=== PATIENT | male | born 1995 | race Caucasian/White ===

== ENCOUNTER 2020-06-07 20:50 | Emergency (ER) | payer BC ==
[~2020-06-07] VITALS: Ht 182.9 cm; Wt 86.1 kg
[2020-06-07 21:00] VITALS: BP 153/94
--- NOTE | 2020-06-07 21:00 | PHYS DOC ---
General Adult HPI: HPI: ".. I was working.... at [employer].. and axil luiz fell.. and I caught it.. my shoulder been hurting .. " Patient is a 25 year old male who presents with above hx and complaints of left shoulder. Patient has obvious swelling of distal left clavicle. Does have deltoid sensation. Distal neurovascular intact. No other injury reported. 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 Patient is right-hand dominant. Review of Systems: Review of Systems: Constitutional: Denies fever or chills Eyes: Denies change in visual acuity HENT: Denies nasal congestion or sore throat Respiratory: Denies cough or shortness of breath Cardiovascular: Denies chest pain or edema GI: Denies abdominal pain, nausea, vomiting, bloody stools or diarrhea : Denies dysuria Musculoskeletal: Complains of left shoulder pain Integument: Denies rash Neurologic: Denies headache, focal weakness or sensory changes Endocrine: Denies polyuria or polydipsia Lymphatic: Denies swollen glands Psychiatric: Denies depression or anxiety Heart Score: Risk Factors: Risk Factors: DM, Current or recent (<one month) smoker, HTN, HLP, family history of CAD, obesity. Risk Scores: Score 0 - 3: 2.5% MACE over next 6 weeks - Discharge Home Score 4 - 6: 20.3% MACE over next 6 weeks - Admit for Clinical Observation Score 7 - 10: 72.7% MACE over next 6 weeks - Early Invasive Strategies Family History: Family History: Noncontributory Current Medications: Current Meds: See nursing for home meds Allergies: Allergies: No known drug allergies Physical Exam: PE: Constitutional: Well developed, well nourished, moderate acute distress, non- toxic appearance. [] HENT: Normocephalic, atraumatic, bilateral external ears normal, oropharynx moist, no oral exudates, nose normal. [] Eyes: PERRLA, EOMI, conjunctiva normal, no discharge. [] Neck: Normal range of motion, no tenderness, supple, no stridor. [] Cardiovascular:Heart rate regular rhythm, no murmur [] Lungs & Thorax: Bilateral breath sounds equal at apex auscultation [] Abdomen: Bowel sounds normal, soft, no tenderness, no masses, no pulsatile masses. [] Skin: Warm, dry, no erythema, no rash. Tattoos Back: No tenderness, no CVA tenderness. [] Extremities: No tenderness, no cyanosis, no clubbing, ROM intact, no edema. Except findings in left shoulder and clavicle area as per HPI Neurologic: Alert and oriented X 3, normal motor function, normal sensory function, no focal deficits noted. [] Psychologic: Affect anxious, judgement normal, mood normal. [] EKG: EKG: [] Radiology/Procedures: Radiology/Procedures: [][address] [address] IMAGING REPORT Signed PATIENT: JUSTA QUIROZ RACCOUNT: [id number] : 1995 LOCATION: ER AGE: 25 SEX: M EXAM STATUS: REG ER ORD. PHYSICIAN: SHANTANU BOUDREAUX MD REASON: POSSIBLE DISLOCATION, LT SHOULDER PAIN, INJURED PLAYING FOOTBALL PROCEDURE: CHEST AP ONLY CHEST AP ONLY Clinical Indication: Reason: POSSIBLE DISLOCATION, LT SHOULDER PAIN, INJURED PLAYING FOOTBALL / Comparison: None. Findings: The cardiomediastinal silhouette is normal. Lungs are clear. There is no pneumothorax. No pleural effusion is appreciated. There is acute fracture of the distal left clavicle. This is better evaluated on dedicated shoulder radiographs. No acute left rib abnormality. IMPRESSION: No acute cardiopulmonary process. Electronically signed by: Primo Ricardo MD (06/07/2020 9:36 PM) [facility] DICTATED AND SIGNED BY: PRIMO RICARDO MD DATE: 06/07/202135 CC: SHANTANU BOUDREAUX MD; PCP,NO ~ Course & Med Decision Making: Course & Med Decision Making Pertinent Labs and Imaging studies reviewed. (See chart for details) Patient resting intact after application of sling. . Patient take Tylenol and ibuprofen for pain. Use ice packs. Follow-up with workman comp. Follow-up with Ortho. For marked pain may take Vicoprofen up to 4 times a day. Return if any concerns. Follow-up workman comp. Impression: 1. Acute Fx of distal clavicle left with AC separation [] Dragon Disclaimer: Nabeel Disclaimer: This electronic medical record was generated, in whole or in part, using a voice recognition dictation system. Departure Departure: Disposition: 01 HOME/RESIDENCE PRIOR TO ADM Condition: STABLE Referrals: PCP,NO (PCP) Scripts Hydrocodone/Ibuprofen (HYDROCODONE-IBUPROFEN 7.5-200 ) 1 Each Tablet 1 TAB PO PRN Q6HRS PRN for PAIN, #30 TAB 0 Refills Prov: SHANTANU BOUDREAUX MD 06/07/20 Justification of Admission: Justification of Admission: Justification of Admission Dx: Yes Dragon Disclaimer This chart was dictated in whole or in part using Voice Recognition software in a busy, high-work load, and often noisy Emergency Department environment. It may contain unintended and wholly unrecognized errors or omissions. SHANTANU BOUDREAUX MD Jun 07, 2020 21:00
--- NOTE | 2020-06-07 21:39 | RAD ---
CHEST AP ONLY Clinical Indication: Reason: POSSIBLE DISLOCATION, LT SHOULDER PAIN, INJURED PLAYING FOOTBALL / Comparison: None. Findings: The cardiomediastinal silhouette is normal. Lungs are clear. There is no pneumothorax. No pleural effusion is appreciated. There is acute fracture of the distal left clavicle. This is better evaluated on dedicated shoulder radiographs. No acute left rib abnormality. IMPRESSION: No acute cardiopulmonary process. Electronically signed by: Primo Wu MD (06/07/2020 9:36 PM) [facility]
--- NOTE | 2020-06-07 21:40 | RAD ---
Three-view left shoulder radiographs 06/07/2020 CLINICAL HISTORY: Injury to the left shoulder while playing football. AP internal and external rotation and transscapular digital radiographs of the left shoulder were obtained. An acute comminuted fracture of the distal diaphysis/metaphysis of the left clavicle is seen near the left AC joint. The proximal fracture fragment is mildly displaced superiorly. The left AC joint appears to be intact. No fracture or dislocation of the left glenohumeral joint is seen. IMPRESSION: Acute comminuted fracture of the distal left clavicle. Electronically signed by: Bethel Morgan MD (06/07/2020 9:37 PM) [id number]
[2020-06-07] MEDS ORDERED: HYDR-1179 PO (22:26)
== END 2020-06-07 21:58 | disposition home or self-care (01) ==
LOC: ER 20:50
DX: S42.032A Displaced fracture of lateral end of left clavicle, initial encounter for closed fracture (principal); W18.39XA Other fall on same level, initial encounter; Y93.89 Activity, other specified; Y92.89 Other specified places as the place of occurrence of the external cause; Y99.8 Other external cause status
CPT/HCPCS: 71045; 73030; 99284

== ENCOUNTER 2021-01-11 20:41 | Emergency (ER) | payer BC, OTHER ==
[~2021-01-11] VITALS: Ht 182.9 cm; Wt 83.8 kg
[~2021-01-11 20:41] MED LIST: HYDR-1179 PO
[2021-01-11 20:52] VITALS: BP 111/77
[2021-01-11] MEDS ORDERED: HYDR-2759 PO (21:27)
[2021-01-11] MEDS ORDERED: AMOX1TAB61 PO (21:28)
== END 2021-01-11 21:40 | disposition home or self-care (01) ==
LOC: ER 20:41
DX: S02.5XXA Fracture of tooth (traumatic), initial encounter for closed fracture (principal); K04.7 Periapical abscess without sinus; X58.XXXA Exposure to other specified factors, initial encounter; Y93.89 Activity, other specified; Y92.89 Other specified places as the place of occurrence of the external cause; Y99.8 Other external cause status
CPT/HCPCS: 99283